=== PATIENT | female | born 1995 | race Caucasian/White ===

== ENCOUNTER 2021-08-07 21:46 | Emergency (ER) | payer OTHER ==
[2021-08-07] MEDS ORDERED: IBUPROFEN 600 MG TAB PO STA (23:53)
[2021-08-07] MEDS ORDERED: ONDANSETRON 4 MG/2 ML VIAL IVP STA (23:56)
[2021-08-07] MEDS ORDERED: SODIUM CHLORIDE 0.9% 1,000 ML IV STA (23:57)
--- NOTE | 2021-08-08 00:01 | ED ---
General Adult HPI - General Chief complaint: Upper Respiratory Infection Stated complaint: Covid+ at home test, wants infusion Time Seen by Provider: 08/07/21 23:24 Source: patient Mode of arrival: ambulatory Limitations: no limitations - History of Present Illness Initial comments: 26-year-old female presents the emergency department with COVID-19 requesting the antibody infusion. She states her symptoms began 3 days ago. She states she has had a headache, body aches, chills, nausea, and chest congestion. She denies any chest pain, vomiting, abdominal pain. She states she has taken Tylenol for her fever. - Related Data Allergies Allergy/AdvReac Type Severity Reaction Status Date / Time No Known Allergies Allergy Verified 08/07/21 22:06 Review of Systems ROS Statement: Those systems with pertinent positive or pertinent negative responses have been documented in the HPI. ROS Other: All systems not noted in ROS Statement are negative. Past Medical History Past Medical History: No Reported History History of Any Multi-Drug Resistant Organisms: None Reported Past Surgical History: Adenoidectomy, Tonsillectomy Past Psychological History: Anxiety Smoking Status: Never smoker Past Alcohol Use History: Occasional Past Drug Use History: None Reported General Exam Limitations: no limitations Head exam: Present: atraumatic, normocephalic, normal inspection Eye exam: Present: normal appearance, PERRL, EOMI. Absent: scleral icterus, conjunctival injection, periorbital swelling ENT exam: Present: normal exam, mucous membranes moist Respiratory exam: Present: normal lung sounds bilaterally. Absent: respiratory distress, wheezes, rales, rhonchi, stridor Cardiovascular Exam: Present: regular rate, normal rhythm, normal heart sounds. Absent: systolic murmur, diastolic murmur, rubs, gallop, clicks GI/Abdominal exam: Present: soft, normal bowel sounds. Absent: distended, tenderness, guarding, rebound, rigid Extremities exam: Present: normal inspection, full ROM Neurological exam: Present: alert, oriented X3, CN II-XII intact Psychiatric exam: Present: normal affect, normal mood Skin exam: Present: warm, dry, intact, normal color. Absent: rash Course Vital Signs 08/07/21 22:06 Temperature 101.5 F H Pulse Rate 118 H Respiratory 20 Rate Blood Pressure 158/80 O2 Sat by Pulse 97 Oximetry - Reevaluation(s) Reevaluation #1: 08/08/21 00:55 Patient states she feels well. In the process of getting the antibody infusion. States her symptoms are well controlled with the fluids and medication given. Medical Decision Making - Medical Decision Making This 26-year-old female presents to the emergency department with COVID-19. States she is here for covid 19 antibody infusion. Chest x-ray impression was normal. Fluids, Zofran, Motrin, and infusion given, patient states she feels much better with symptoms improving. Return precautions discussed. Advised to return to emergency department if severe shortness of breath, chest pain, unable to keep liquids down, fever over 104.0 occur. Patient sent home in stable condition. Patient advised to get pulse oximeter for home and return to emergency room if oxygen drops below 90%. - Lab Data Lab Results 08/07/21 Range/Units 22:14 Coronavirus (PCR) Detected A (Not Detectd) Disposition Clinical Impression: COVID-19 Disposition: HOME SELF-CARE Condition: Stable Instructions (If sedation given, give patient instructions): Coronavirus Disease 2019 (COVID-19) Additional Instructions: Return to emergency department if new or worsening symptoms occur. Can take [id number] zinc, vitamin C, vitamin D. Follow-up with primary care provider in one to 2 days. Is patient prescribed a controlled substance at d/c from ED?: No Referrals: None,Stated [Primary Care Provider] - 1-2 days Decision Time: 02:09
[2021-08-08] MEDS ORDERED: BAMLANIVIMAB (EUA) 700 MG, ETESEVIMAB (EUA) 1,400 MG in SODIUM CHLORIDE 0.9% 100 ML IVPB ONE (00:15)
[2021-08-08] MEDS ORDERED: SODIUM CHLORIDE 0.9% 50 ML IVPB ONE (00:15)
--- NOTE | 2021-08-08 00:17 | XR ---
EXAMINATION TYPE: XR chest 2V DATE OF EXAM: 08/08/2021 COMPARISON: NONE HISTORY: Short of breath TECHNIQUE: 2 views FINDINGS: Heart is normal. Lungs are clear of infiltrate. There is no heart failure. There are no hil ar masses. Bony thorax is intact. IMPRESSION: Normal chest.
[2021-08-08 03:20] VITALS: BP 118/76; PULSE 92; RESP 19; TEMP 98.8
== END 2021-08-08 03:15 | disposition home or self-care (01) ==
LOC: EC 21:46
DX: U07.1 COVID-19 (principal)
CPT/HCPCS: 71046; 87635; 96374; 99284